=== PATIENT | female | born 1955 | race Caucasian/White ===

== ENCOUNTER 2018-09-22 08:00 | Outpatient (RCR) | payer OTHER | END 2018-09-22 09:00 | disposition home or self-care (01) | DRG 561 | LOC: PT 08:00 | PROVIDERS: ATTEND Orthopaedic Surgery | DX: Z47.89 Encounter for other orthopedic aftercare (principal); M75.101 Unspecified rotator cuff tear or rupture of right shoulder, not specified as traumatic ==

== ENCOUNTER 2018-09-29 08:00 | Outpatient (RCR) | payer OTHER | END 2018-09-29 09:00 | disposition home or self-care (01) | DRG 561 | LOC: PT 08:00 | PROVIDERS: ATTEND Orthopaedic Surgery | DX: Z47.89 Encounter for other orthopedic aftercare (principal); M75.101 Unspecified rotator cuff tear or rupture of right shoulder, not specified as traumatic ==

== ENCOUNTER 2020-09-20 17:53 | Emergency (ER) | payer BC ==
[~2020-09-20] VITALS: Ht 162.6 cm; Wt 80.0 kg
[2020-09-20] MEDS ORDERED: OMEPRAZOLE DR20 MG PO (18:16)
[2020-09-20] MEDS ORDERED: LORATADINE10 M3 PO (18:17)
[2020-09-20] MEDS ORDERED: VITAMIN B-12500 MCG PO (18:19)
[2020-09-20] MEDS ORDERED: BIOTIN5000 MC2 PO (18:21)
[2020-09-20] MEDS ORDERED: CALCIUM/VITAMIN1 TA2 PO (18:21)
[2020-09-20] MEDS ORDERED: ATORVASTATIN CA10 MG PO (18:22)
[2020-09-20] MEDS ORDERED: MECLIZINE25 MG PO (18:23)
[2020-09-20] MEDS ORDERED: TRAZODONE HYDR150 MG PO (18:24)
[2020-09-20] MEDS ORDERED: PERCOCET 5/325M1 TAB PO (18:25)
[2020-09-20] MEDS ORDERED: VENTOLIN HFA IN (18:26)
[2020-09-20] MEDS ORDERED: AZULFIDINE500 M1 PO (18:28)
[2020-09-20 19:08] VITALS: BP 131/83
== END 2020-09-20 19:08 | disposition home or self-care (01) | DRG 605 ==
LOC: ED 17:53
PROC: 0HQ1XZZ Repair Face Skin, External Approach (ICD-10-PCS; principal; 2020-09-20)
DX: S01.81XA Laceration without foreign body of other part of head, initial encounter (principal); J44.9 Chronic obstructive pulmonary disease, unspecified; W18.39XA Other fall on same level, initial encounter; Y93.H2 Activity, gardening and landscaping; Y92.007 Garden or yard of unspecified non-institutional (private) residence as the place of occurrence of the external cause